=== PATIENT | female | born 1990 | race Caucasian/White ===

== ENCOUNTER 2016-04-09 02:27 | Emergency (ER) | payer BC ==
[2016-04-09] MEDS ORDERED: Etomidate 2 MG/ML 10 ML SDV IVPUSH ONE (03:08)
[2016-04-09] MEDS ORDERED: Midazolam 1 MG/ML 2 ML SDV IVPUSH PRN ×2 (03:09→03:33)
[2016-04-09] MEDS ORDERED: Succinylcholine 200 MG/10 ML MDV IV ONE (03:09)
[2016-04-09] MEDS ORDERED: Haloperidol Lactate 5 MG/ML SDV ONE (03:17)
[2016-04-09] MEDS ORDERED: LORazepam 2 MG/ML MDV ONE ×2 (03:19→03:39)
[2016-04-09] MEDS ORDERED: Midazolam 1 MG/ML 2 ML SDV ONE ×5 (03:29→04:40)
[2016-04-09] MEDS ORDERED: Sodium Chloride 0.9% 1,000 ML IV ONE (03:30)
[2016-04-09] MEDS ORDERED: fentaNYL 100 MCG/2 ML SDV IVPUSH ONE (03:31)
[2016-04-09 03:33] LABS: BASOPHILS PERCENT AUTO 0.4 % (0.2-1.2); EOSINOPHILS PERCENT AUTO 0.2 % (0.0-4.0); HEMATOCRIT 37.9 % (33.0-47.0); HEMOGLOBIN 13.1 g/dL (12.0-16.0); LYMPHOCYTES PERCENT AUTO 31.5 % (25.0-50.0); MEAN CORPUSCULAR HEMOGLOBIN 31.4 pg (26.0-32.0); MEAN CORPUSCULAR HGB CONC 34.6 g/dL (32.0-36.0); MEAN CORPUSCULAR VOLUME 90.9 fL (78.0-93.0); NEUTROPHILS PERCENT AUTO 62.9 % (50.0-80.0); RDW CV 12.8 % (10.0-15.0); RED BLOOD CELL COUNT 4.17 x10^6/uL (4.00-5.50)
[2016-04-09] MEDS ORDERED: Rocuronium 50 MG/5 ML Vial IVPUSH ONE (03:40)
[2016-04-09] MEDS ORDERED: Rocuronium 50 MG/5 ML Vial ONE (03:41)
[2016-04-09 03:50] LABS: CALCIUM 7.9 mg/dL (8.5-10.1); CHLORIDE,CL 108 mmol/L (98-107); CREATININE 0.6 mg/dL (0.55-1.02); ESTIMATED GFR > 60; GLUCOSE RANDOM 103 mg/dL (74-106)
[2016-04-09 03:51] LABS: APPEARANCE,URINE CLEAR (CLEAR); BILIRUBIN,URINE NEGATIVE (NEGATIVE); GLUCOSE,URINE NEGATIVE (NEGATIVE); KETONES,URINE NEGATIVE (NEGATIVE); LEUKOCYTE ESTERASE,URINE NEGATIVE (NEGATIVE); NITRITE,URINE NEGATIVE (NEGATIVE); OCCULT BLOOD,URINE TRACE-LYSED (NEGATIVE); PROTEIN,URINE NEGATIVE (NEGATIVE); RBC,URINE 0-5 /HPF (NOT SEEN); UROBILINOGEN,URINE 0.2 EU/dL (0.2); WBC,URINE 0-5 /HPF (NOT SEEN)
[2016-04-09 03:52] LABS: BACTERIA,URINE RARE /HPF (NEGATIVE); MUCUS,URINE NOT SEEN /LPF (NEGATIVE)
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
[2016-04-09] MEDS ORDERED: Sodium Chloride 0.9% 10 ML Syringe FLUSH PRN (04:06)
[2016-04-09] MEDS ORDERED: Sodium Chloride 0.9% 1,000 ML IV SCH (04:15)
[2016-04-09 04:34] LABS: HCO3 ARTERIAL,ISTAT 23 mmol/L (22-26); O2 SATURATION ARTERIAL,ISTAT 100 % (95-98); PCO2 ARTERIAL,ISTAT 39 mmHG (35-45); PH ARTERIAL,ISTAT 7.379 (7.35-7.45); PO2 ARTERIAL,ISTAT 340 mmHG (80-105); TCO2 ARTERIAL,ISTAT 24 mmol/L (23-27)
[2016-04-09] MEDS ORDERED: Midazolam 1 MG/ML 2 ML SDV IVPUSH ONE (06:29)
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
== END 2016-04-09 04:49 | disposition short-term general hospital (02) ==
LOC: VM.ED 02:27
DX: S06.9X9A Unspecified intracranial injury with loss of consciousness of unspecified duration, initial encounter (principal); S05.92XA Unspecified injury of left eye and orbit, initial encounter; Y90.8 Blood alcohol level of 240 mg/100 ml or more; W01.198A Fall on same level from slipping, tripping and stumbling with subsequent striking against other object, initial encounter
CPT/HCPCS: 31500; 36415; 36600; 70450; 71010; 72125; 80048; 80305; 80349; 81001; 81025; 82803; 85025; 94002; 96361; 96372; 96374; 96375; 96376; 99291; 99292; G0480; J0330; J1630; J2060; J2250; J3010; J3230; J7030